=== PATIENT | female | born 1985 | race Caucasian/White ===

== ENCOUNTER 2017-12-14 10:34 | Day surgery (SDC) | payer BC ==
[~2017-12-14] VITALS: Ht 162.6 cm; Wt 210.0 kg
[~2017-12-14 10:34] MED LIST: MOTRIN800 MG PO; ZANTAC150 MG PO
[2017-12-14 11:18] VITALS: BP 121/57
[2017-12-14 16:25] VITALS: BP 145/71
[2017-12-14 17:25] VITALS: BP 130/70
== END 2017-12-14 17:34 | disposition home or self-care (01) ==
LOC: SDC 10:34
PROVIDERS: Orthopaedic Surgery Sports Medicine
PROC: 0SBC4ZZ Excision of Right Knee Joint, Percutaneous Endoscopic Approach (ICD-10-PCS; principal; 2017-12-14)
DX: S83.241A Other tear of medial meniscus, current injury, right knee, initial encounter (principal); M17.11 Unilateral primary osteoarthritis, right knee; M25.561 Pain in right knee; R26.89 Other abnormalities of gait and mobility; X50.1XXA Overexertion from prolonged static or awkward postures, initial encounter; Y92.481 Parking lot as the place of occurrence of the external cause
CPT/HCPCS: 81025; J0171; J0330; J0690; J1100; J1170; J1885; J2250; J2405; J3010